=== PATIENT | female | born 1950 | race Caucasian/White ===

== ENCOUNTER 2023-12-11 13:42 | Outpatient (RCR) | payer MEDICARE, OTHER, SELFPAY ==
[2023-12-11 13:57] VITALS: BP 158/81
[2023-12-11] MEDS: INJECTAFER 265 MG IV (14:05)
[2023-12-11 15:09] VITALS: BP 145/80
== END 2024-01-04 23:59 | disposition home or self-care (01) ==
LOC: OID 13:42
PROVIDERS: ATTENDING PHYSICIAN Internal Medicine; FAMILY PHYSICIAN Family Medicine
DX: D50.9 Iron deficiency anemia, unspecified (principal); K90.41 Non-celiac gluten sensitivity
CPT/HCPCS: 96365; J1439

== ENCOUNTER → 2024-01-23 13:40 | Outpatient (REF) | payer MEDICARE, OTHER, SELFPAY | LOC: WDC 13:40 | PROVIDERS: ATTENDING PHYSICIAN Obstetrics & Gynecology | DX: R92.2 Inconclusive mammogram (principal) | CPT/HCPCS: 76641 ==

== ENCOUNTER → 2025-02-10 14:23 | Outpatient (REF) | payer MEDICARE, OTHER, SELFPAY | LOC: HWWDC 14:23 | PROVIDERS: ATTENDING PHYSICIAN Obstetrics & Gynecology; FAMILY PHYSICIAN Family Medicine | DX: Z12.31 Encounter for screening mammogram for malignant neoplasm of breast (principal) | CPT/HCPCS: 77063; 77067 ==